=== PATIENT | male | born 1965 | race Caucasian/White ===

== ENCOUNTER 2016-07-01 08:04 | Day surgery (SDC) | payer OTHER ==
[2016-06-26 17:35] VITALS: BMI 26.4
[2016-07-01] MEDS ORDERED: PROPOFOL 20 ML ONE ×3 (08:42)
[2016-07-01 09:19] VITALS: TEMP 98
[2016-07-01 10:02] VITALS: BP 121/65; PULSE 74
--- NOTE | 2016-07-02 11:14 | PATH ---
Surgical Pathology Report Patient Name: DON PEÑA [facility]. Rec. #: [id number] /Age/Gender: 1965 (Age: 50) / M Account: [id number] Location: [facility]-ENDOSCOPY Taken: 07/01/2016 Received: 07/01/2016 Reported: 07/02/2016 Physicians: Chilango Zamora M.D. Specimen(s) Received POLYP OF HEPATIC FLEXURE Clinical History History of polyps Final Diagnosis HEPATIC FLEXURE, POLYP, BIOPSY: TUBULAR ADENOMA. Electronically Signed Iris Mari M.D. Gross Description Received in formalin, labeled "polyp of hepatic flexure" is a ross, irregular portion of soft tissue measuring 0.3 cm. in greatest dimension. The specimen is submitted in toto in one cassette. 07/01/201607/01/2016
== END 2016-07-01 09:55 | disposition home or self-care (01) ==
LOC: FASU-ENDO 08:04
PROVIDERS: ATTEND Internal Medicine Gastroenterology
PROC: 0DBL8ZX Excision of Transverse Colon, Via Natural or Artificial Opening Endoscopic, Diagnostic (ICD-10-PCS; principal; 2016-07-01 08:54)
DX: Z12.11 Encounter for screening for malignant neoplasm of colon (principal); Z80.0 Family history of malignant neoplasm of digestive organs; D12.3 Benign neoplasm of transverse colon
CPT/HCPCS: 88305-TC

== ENCOUNTER 2022-01-03 08:00 | Day surgery (SDC) | payer OTHER ==
[2022-01-01 10:33] VITALS: BMI 26.4
[2022-01-03 08:14] VITALS: RESP 18
[2022-01-03 09:46] VITALS: TEMP 97.5
[2022-01-03 10:02] VITALS: BP 130/70; PULSE 62
== END 2022-01-03 10:11 | disposition home or self-care (01) ==
LOC: FASU-ENDO 08:00
PROVIDERS: ATTEND Internal Medicine Gastroenterology
PROC: 0DBH8ZX Excision of Cecum, Via Natural or Artificial Opening Endoscopic, Diagnostic (ICD-10-PCS; principal; 2022-01-03 09:19)
DX: Z12.11 Encounter for screening for malignant neoplasm of colon (principal); Z80.0 Family history of malignant neoplasm of digestive organs; K63.5 Polyp of colon
CPT/HCPCS: 88305-TC